=== PATIENT | female | born 1965 | race Caucasian/White ===

== ENCOUNTER → 2016-12-30 | Outpatient (CLI) | payer BC, OTHER | LOC: ULTRA 16:01 | DX: M17.0 Bilateral primary osteoarthritis of knee (principal) ==

== ENCOUNTER → 2017-12-11 | Outpatient (CLI) | payer OTHER | LOC: ULTRA 10:53 | DX: E04.2 Nontoxic multinodular goiter (principal) ==

== ENCOUNTER → 2017-12-27 | Outpatient (CLI) | payer OTHER ==
--- NOTE | ~2017-12-27 | 2DMMODE ---
[facility] [address] [place] [address] 2 D/M-MODE ECHOCARDIOGRAM Name: SEVERINOELISABETH Room #: REG [facility]#: [id number] Admission: 12/27/17 Attend Phys: Faustino Arora Discharge: Date of : 67 Date of Service: 12/27/17 1639 Report #: [id number] THIS REPORT FOR: //name// APPROVED REPORT Study performed: 12/27/2017 14:56:17 EXAM: Comprehensive 2D, Doppler, and color-flow Echocardiogram Patient Location: Out-Patient Status: routine BSA: 2.00 HR: 83 bpm BP: 150/110 mmHg Rhythm: NSR Other Information Study Quality: Adequate Indications Hypertension. 2D Dimensions RVDd: 34.50 mm LVEF(%): 51.79 (>50%) IVSd: 11.01 (7-11mm) LVOT Diam: 18.61 (18-24mm) LVDd: 45.12 mm PWd: 9.78 (7-11mm) Ascending Ao: 30.46 (22-36mm) LVDs: 33.22 (25-40mm) Aortic Root: 29.32 mm Alvarado's LVEF: 51.79 % Volumes Left Atrial Volume (Systole) Single Plane 4CH: 34.23 mL Single Plane 2CH: 53.80 mL LA ESV Index: 24.00 mL/m2 Aortic Valve AoV Peak Esequiel.: 1.54 m/s AO Peak Gr.: 9.46 mmHg LVOT Max P.84 mmHg LVOT Max V: 0.98 m/s SAM Vmax: 1.73 cm2 Mitral Valve E/A Ratio: 0.9 MV Decel. Time: 201.79 ms [facility] [address] [place] [address] 2 D/M-MODE ECHOCARDIOGRAM Name: ELISABETH HAQ Wendy Room #: REG [facility]#: [id number] Admission: 12/27/17 Attend Phys: Faustino Arora Discharge: Date of : 67 Date of Service: 12/27/17 1639 Report #: [id number] MV E Max Esequiel.: 0.91 m/s MV A Esequiel.: 1.05 m/s MV PHT: 58.52 ms IVRT: 86.51 ms Pulmonary Valve PV Peak Esequiel.: 0.91 m/s PV Peak Gr.: 3.33 mmHg Pulmonary Vein P Vein S: 0.56 m/s P Vein D: 0.42 m/s P Vein S/D Ratio: 1.33 Tricuspid Valve TR Peak Esequiel.: 1.95 m/s RAP Estimate: 5.00 mmHg TR Peak Gr.: 15.20 mmHg PA Pressure: 20.00 mmHg Left Ventricle The left ventricle is normal size. There is normal LV segmental wall motion. There is normal left ventricular wall thickness. The left ventricular systolic function is normal. LVEF is 55%. Mild diastolic dysfunction is present (impaired relaxation pattern). Right Ventricle The right ventricle is normal size. The right ventricular systolic function is normal. Atria The left atrium size is normal. The right atrium size is normal. Aortic Valve The aortic valve is normal in structure. Mild to moderate aortic regurgitation. Mitral Valve The mitral valve is normal in structure. Trace to mild mitral regurgitation. Tricuspid Valve The tricuspid valve is normal in structure. Trace tricuspid regurgitation. Estimated PAP 20mmHg. Pulmonic Valve Pulmonic valve is not well visualized. [facility] [address] [place] [address] 2 D/M-MODE ECHOCARDIOGRAM Name: SEVERINOELISABETH A Room #: REG [facility]#: [id number] Admission: 12/27/17 Attend Phys: Faustino Arora Discharge: Date of : 67 Date of Service: 12/27/17 1639 Report #: [id number] Great Vessels The aortic root is normal in size. The ascending aorta is normal in size. IVC is normal in size and collapses >50% with inspiration. Pericardium There is no pericardial effusion. <Conclusion> The left ventricle is normal size. LVEF is 55%. The aortic valve is normal in structure. Mild to moderate aortic regurgitation. The mitral valve is normal in structure. Trace to mild mitral regurgitation. The tricuspid valve is normal in structure. Trace tricuspid regurgitation. Estimated PAP 20mmHg. Pulmonic valve is not well visualized. There is no pericardial effusion. <ELECTRONICALLY SIGNED> By: Faustino Allen MD 12/27/17 1639 [id number] Faustino Allen MD /INF
== END ==
LOC: CV 07:45
DX: I35.1 Nonrheumatic aortic (valve) insufficiency (principal); I10 Essential (primary) hypertension

== ENCOUNTER → 2019-11-22 | Outpatient (CLI) | payer OTHER | LOC: ULTRA 15:52 | DX: E04.2 Nontoxic multinodular goiter (principal) ==